=== PATIENT | female | born 1960 | race Asian ===

== ENCOUNTER 2020-12-05 08:18 | Emergency (ER) | payer MEDICAID ==
[~2020-12-05] VITALS: Ht 157.5 cm; Wt 68.2 kg
[~2020-12-05 08:18] MED LIST: CYCL-1 PO; IBUP-1984 PO
[2020-12-05 09:12] LABS: BASOPHILS % (AUTO) 0.1 % (0-1); EOSINOPHILS # (AUTO) 0.2 X10'3 (0-0.9); EOSINOPHILS % (AUTO) 4.8 % (0-6); HEMATOCRIT 41.5 % (35.0-45.0); HEMOGLOBIN 13.8 g/dl (12.0-16.0); LYMPHOCYTES # (AUTO) 1.6 X10'3 (1.1-4.8); LYMPHOCYTES % (AUTO) 32.6 % (21-51); MEAN CORPUSCULAR HEMOGLOBIN 30.8 PG (27.0-31.0); MEAN CORPUSCULAR HGB CONC 33.3 g/dL (33.0-36.5); MEAN CORPUSCULAR VOLUME 92.4 FL (78-98); MONOCYTES # (AUTO) 0.3 X10'3 (0-0.9); MONOCYTES % (AUTO) 6.9 % (2-12); NEUTROPHILS # (AUTO) 2.7 X10'3 (1.8-7.7); NEUTROPHILS % (AUTO) 55.6 % (42-75); PLATELET COUNT 214 X10'3 (140-440); RED BLOOD COUNT 4.49 X10'6 (4.20-5.60); RED CELL DISTRIBUTION WIDTH 12.8 % (11.5-14.5); WHITE BLOOD COUNT 4.9 X10'3 (4.5-11.0)
[2020-12-05 09:18] LABS: ALANINE AMINOTRANSFERASE 28 U/L (12-78); ALBUMIN 3.3 G/DL (3.4-5.0); ALBUMIN/GLOBULIN RATIO 0.9 (1.1-1.5); ALKALINE PHOSPHATASE 51 IU/L (46-116); ANION GAP 9 (8-16); ASPARTATE AMINO TRANSFERASE 20 U/L (10-37); BILIRUBIN,TOTAL 0.8 MG/DL (0.1-1.0); BLOOD UREA NITROGEN 17 MG/DL (7-18); CALCIUM 8.6 MG/DL (8.5-10.1); CHLORIDE 110 MMOL/L (99-107); CREATININE 1.13 MG/DL (0.40-0.90); GLUCOSE 89 MG/DL (70-104); POTASSIUM 3.5 MMOL/L (3.5-5.1); SODIUM 147 MMOL/L (135-145); TOTAL CARBON DIOXIDE 28.1 MMOL/L (24-32); TOTAL PROTEIN 6.9 G/DL (6.4-8.2); eGFR 49 ML/MIN
[2020-12-05 09:28] VITALS: BP 123/66
[2020-12-05] MEDS ORDERED: ketorolac trometh. 30mg/ml inj. IV ONE (09:50)
[2020-12-05] MEDS ORDERED: ketorolac tromethamine 15mg/ml inj. IV ONE (10:00)
[2020-12-05] MEDS ORDERED: CYCL-1 PO (11:31)
== END 2020-12-05 11:40 | disposition home or self-care (01) ==
LOC: ER 08:18
DX: R07.9 Chest pain, unspecified (principal); Z56.0 Unemployment, unspecified; Z79.899 Other long term (current) drug therapy
CPT/HCPCS: 36415; 71045; 80053; 83880; 84484; 85025; 93005; 96374; 99285; J1885

== ENCOUNTER 2022-06-08 10:00 | Emergency (ER) | payer MEDICAID ==
[~2022-06-08] VITALS: Ht 157.5 cm; Wt 70.4 kg
[2022-06-08 10:10] VITALS: BP 130/59
[2022-06-08 10:21] LABS: BASOPHILS % (AUTO) 0.8 % (0-1); EOSINOPHILS # (AUTO) 0.2 X10'3 (0-0.9); EOSINOPHILS % (AUTO) 3.4 % (0-6); HEMOGLOBIN 13.8 g/dl (12.0-16.0); LYMPHOCYTES # (AUTO) 1.6 X10'3 (1.1-4.8); LYMPHOCYTES % (AUTO) 36.2 % (21-51); MEAN CORPUSCULAR HEMOGLOBIN 31.4 PG (27.0-31.0); MEAN CORPUSCULAR HGB CONC 33.6 g/dL (33.0-36.5); MEAN CORPUSCULAR VOLUME 93.5 FL (78-98); MONOCYTES # (AUTO) 0.3 X10'3 (0-0.9); MONOCYTES % (AUTO) 7.5 % (2-12); NEUTROPHILS # (AUTO) 2.3 X10'3 (1.8-7.7); NEUTROPHILS % (AUTO) 52.1 % (42-75); PLATELET COUNT 180 X10'3 (140-440); RED BLOOD COUNT 4.38 X10'6 (4.20-5.60); RED CELL DISTRIBUTION WIDTH 12.8 % (11.5-14.5); WHITE BLOOD COUNT 4.5 X10'3 (4.5-11.0)
[2022-06-08 10:33] LABS: ALANINE AMINOTRANSFERASE 29 U/L (12-78); ALBUMIN 3.6 G/DL (3.4-5.0); ALBUMIN/GLOBULIN RATIO 0.9 (1.1-1.5); ALKALINE PHOSPHATASE 46 IU/L (46-116); ANION GAP 6 (8-16); ASPARTATE AMINO TRANSFERASE 33 U/L (10-37); BILIRUBIN,TOTAL 0.6 MG/DL (0.1-1.0); BLOOD UREA NITROGEN 16 MG/DL (7-18); BUN/CREATININE RATIO 15.2 (10.0-20.0); CALCIUM 9.1 MG/DL (8.5-10.1); CHLORIDE 105 MMOL/L (99-107); CREATININE 1.05 MG/DL (0.40-0.90); GLUCOSE 88 MG/DL (70-104); POTASSIUM 3.6 MMOL/L (3.5-5.1); SODIUM 142 MMOL/L (135-145); TOTAL CARBON DIOXIDE 31.4 MMOL/L (24-32); TOTAL PROTEIN 7.4 G/DL (6.4-8.2); eGFR 53 ML/MIN
== END 2022-06-08 10:55 | disposition home or self-care (01) ==
LOC: ER 10:01
DX: R20.2 Paresthesia of skin (principal); F41.9 Anxiety disorder, unspecified; Z79.899 Other long term (current) drug therapy
CPT/HCPCS: 36415; 80053; 83735; 83880; 84484; 85025; 93005; 99284

== ENCOUNTER 2024-10-28 13:23 | Outpatient (CLI) | payer MEDICARE, MEDICAID ==
--- NOTE | 2024-10-28 15:07 | RADIOLOGY REPORT ---
EXAM: MR MRI LUMBAR SPINE HISTORY: RADICULOPATHY, LUMBAR REGION 64-year-old female with low back pain, left lower extremity pa in and numbness. COMPARISON: None available. TECHNIQUE: Multiplanar multisequence noncontrast MR images of the lumbar spine were performed. FINDINGS: No fracture or listhesis are identified in the lumbar spine. The conus terminates at L1-L2. There is slight lumbar levoscoliosis. L1-L2: There is a mild circumferential broad disc bulge. There is bilateral facet hypertrophy. No si gnificant spinal canal stenosis or neural foraminal stenosis bilaterally. L2-L3: There is a circumferential broad disc bulge with endplate hypertrophy, most prominent in the f oraminal regions. There is bilateral facet hypertrophy. No significant spinal canal stenosis. Ther e is mild right and moderate left neural foraminal stenosis. L3-L4: There is a circumferential broad disc bulge with endplate hypertrophy, most prominent in the l eft foraminal region. There is bilateral facet and ligamentum flavum hypertrophy. There is a right f oraminal disc annulus tear. No significant spinal canal stenosis. There is moderate bilateral neural foraminal stenosis. L4-L5: There is congenital fusion L4-L5. No significant spinal canal stenosis. There is mild bilatera l neural foraminal stenosis. L5-S1: No significant discopathy, spinal canal stenosis, or neural foraminal stenosis. There is mild bilateral facet hypertrophy. There is a lumbosacral transitional vertebrae. IMPRESSION: 1. No fracture of the lumbar spine. 2. Congenital fusion L4-L5. 3. Degenerative disc disease and facet arthropathy with significant neural foraminal stenosis at L2- L3 on the left and L3-L4 bilaterally. These findings May correspond to lower extremity radicular sym ptoms in the left L2 and bilateral L3 nerve root distributions. 4. No significant spinal canal stenosis at any level in the lumbar spine.
== END 2024-10-28 23:59 | disposition home or self-care (01) ==
LOC: MRI 13:23
PROVIDERS: ATTEND Family Medicine
DX: M51.16 Intervertebral disc disorders with radiculopathy, lumbar region (principal); M47.27 Other spondylosis with radiculopathy, lumbosacral region; M48.061 Spinal stenosis, lumbar region without neurogenic claudication
CPT/HCPCS: 72148